=== PATIENT | male | born 1955 | race Caucasian/White ===

== ENCOUNTER 2016-10-02 06:44 | Emergency (ER) | payer MEDICARE, OTHER ==
[2016-10-02] MEDS ORDERED: Sodium Chloride 0.9% 1,000 ML IV ONE (06:58)
[2016-10-02] MEDS ORDERED: HYDROmorphone 2 MG/ML SDV IVPUSH ONE (06:59)
[2016-10-02] MEDS ORDERED: Ondansetron 4 MG/2 ML SDV IVPUSH ONE (07:00)
[2016-10-02] MEDS ORDERED: diphenhydrAMINE 50 MG Cap PO ONE (07:03)
[2016-10-02] MEDS ORDERED: Iopamidol 755 Mg/ML 100 ML Bottle IV ONE (07:41)
[2016-10-02] MEDS ORDERED: Sodium Chloride 0.9% 1,000 ML IV SCH (08:45)
[2016-10-02 11:31] VITALS: BP 145/89
[2016-10-02] MEDS: Pantoprazole 40 MG Vial IVPUSH ONE ×3 (14:08→14:38)
--- NOTE | 2016-10-04 14:04 | ER ---
DATE SEEN: 10/02/2016 The patient was seen at 0645 hours. CHIEF COMPLAINT: Abdominal pain. HISTORY OF PRESENT ILLNESS: This is a 60-year-old gentleman who has had problems with left rotator cuff surgery, August 04, 2016, after prolonged use of narcotics for the shoulder discomfort, presents now with onset of severe abdominal pain. He has not had oral narcotics for a month and a half. No unusual food eaten. No diarrhea, no vomiting, with severe onset of abdominal cramping this morning. No blood in his stool, black or tarry stools, diarrhea, or GERD. His weight has steadily increased, currently 90.7 kg. The patient denies fever, backache, and previous renal stones. SOCIAL HISTORY: He is a smoker. PAST SURGICAL HISTORY: Cholecystectomy, laparoscopic Alecia surgery fundoplication, hiatus hernia repair. A previous documented MRI right posteromedial tear of meniscus, right knee, some flattening and sclerosis of the meniscus. CURRENT MEDICATIONS: 1. Zolmitriptan for migraines. 2. Omeprazole for GERD. 3. Flomax. ALLERGIES: Flexeril, ketoprofen, and tramadol. REVIEW OF SYSTEMS: Negative except for as noted above. The patient denies shortness of breath, chest pain, irregular heartbeat, back pain, arm pain, jaw pain, neck pain. Denies flank pain. Denies difficulty passing urine, frequency, urgency, or dysuria. On occasions, he has slow flow. For that reason, he is taking Flomax (prostatism). PHYSICAL EXAMINATION: VITAL SIGNS: Blood pressure 161/112, heart rate 49, respirations 20, oxygen saturation 98%, temperature is 36.6 degrees centigrade. GENERAL: Alert man whose pain is out of proportion on exam. Markedly overweight. Increased abdominal girth. HEENT: TMs negative. Pharynx without abnormality. LUNGS: Clear to auscultation without rales or rhonchi. HEART: S1, S2. No murmur. No irregular rate and rhythm. ABDOMEN: Soft, but marked increased abdominal girth without tympany. Mild guarding. No rebound. No CVA percussion tenderness. GENITALIA: Negative. No inguinal hernia. No hernia demonstrated on palpation with examination. A while after I had left the room, he was found rolling on the floor because he had so much pain (quite an exaggerated pain response). His stated he has high pain threshold (I think this is not the case). EMERGENCY ROOM COURSE: The patient was given a flush of IV fluid, 2 mg Dilaudid IV and 4 mg Zofran IV. His pain relented quickly. He had oral and IV contrast. CAT scan performed which was read as normal. Appendix is normal. Colonic diverticulosis is noted. Small size hiatus hernia noted. Surgical clips of diaphragmatic hiatus. No free air. No lymphadenopathy. Mild aorto-iliac atherosclerosis. No aneurysm. Lower chest subsegmental atelectasis, both lung bases. CT ASSESSMENT: No acute findings in the abdomen or pelvis. LABORATORY FINDINGS: White count 13,500, mild elevation. Differential normal, 71 PMNs, 20 lymphs, 9 monos, platelets 221,000, elevated hemoglobin of 16.3. Complete metabolic panel: Lactic acid normal at 1.9. Sodium 137, potassium 3.7, chloride 99, bicarb 26, BUN 21, creatinine 0.9. BUN and creatinine ratio 23.3, suggesting dehydration. Urinalysis was normal, rare bacteria. Specific gravity 1.015. ASSESSMENT: 1. Abdominal pain. The patient's etiology is undetermined, possibly related to spasm and/or previous hiatus hernia Alecia repair. He did not have any vomiting, nor did he have diarrhea or fever to suggest an inflammatory infectious process. He has mild leukocytosis without neutrophilia. 2. Mild dehydration. The patient was flushed with 1500 mL normal saline. His pain had relented to a 1/10 to 2/10 in intensity, improved. PLAN: Gradually progressive increase in his diet. He will start with liquids and broth today and solids tomorrow. He is advised he still might have recurrence of abdominal pain. Etiology of pain is indeterminate at this point. Does not appear to be an infectious process, obstructive process, volvulus, intussusception, appendicitis, or diverticulitis. Follow up with his doctor in the next 5 to 7 days. He has Tylenol 1000 mg and 600 mg ibuprofen q.6 hours, take together for breakthrough pain. He has hydrocodone one 4 to 6 hours p.r.n. pain, 16 tablets. /[id number] /ARTEMIOL
== END 2016-10-02 11:55 | disposition home or self-care (01) ==
LOC: FB.ED 06:44
DX: E86.0 Dehydration (principal); R10.9 Unspecified abdominal pain; Z90.49 Acquired absence of other specified parts of digestive tract; Z98.890 Other specified postprocedural states; Z88.1 Allergy status to other antibiotic agents; Z88.5 Allergy status to narcotic agent
CPT/HCPCS: 36415; 74177; 80053; 81001; 83605; 84484; 85025; 86140; 93005; 96361; 96374; 96375; 99284; A9270; J1170; J2405; J7040; Q9967

== ENCOUNTER 2017-04-14 14:54 | Emergency (ER) | payer MEDICARE, OTHER ==
--- NOTE | 2017-04-14 15:03 | EDM.PDOC ---
ED HPI GENERAL MEDICAL PROBLEM - General Chief Complaint: Cardiovascular Problem Stated Complaint: CHEST PAIN Time Seen by Provider: 04/14/17 14:55 Source of Information: Reports: Patient, EMS, Old Records History Limitations: Reports: No Limitations - History of Present Illness INITIAL COMMENTS - FREE TEXT/NARRATIVE: 61 yo male developed R sided chest pain like a pressure after eating a chili dog in [place] today. He drove himself back to [place] and presented to the clinic where upon they sent him to the ER via EMS. He had a normal EKG en route to the ER. A first NTG reduced his pain, a 2nd did nothing, nor did an additional 50 mcg of Fentanyl. He also got ASA 324 mg po. He has a remote hx of tobacco use. He has had his gallbladder out. No personal hx of CAD. EMS says he has acted lethargic since they first arrived. Onset: Today Onset Date: 04/14/17 Onset Time: 13:05 Duration: Minutes: Location: Reports: Chest (R side) Quality: Reports: Pressure Severity: Moderate (Was severe earlier) Improves with: Reports: None (NTG reduced pain after first dose only. ) Worsens with: Reports: Other (unknown) Context: Reports: Other (unknown, began after eating lunch. ) Associated Symptoms: Reports: Chest Pain. 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, Other Medication(s) (NTG x 2 SL, Fentanyl 50 mcg IV) - Related Data Allergies Allergy/AdvReac Type Severity Reaction Status Date / Time cyclobenzaprine HCl Allergy Mild Other Verified 10/02/16 14:24 [From Flexeril] ketoprofen Allergy Mild Other Verified 10/02/16 14:24 tramadol AdvReac Nausea and Verified 10/02/16 14:24 Vomiting Home Meds: Home Meds Tamsulosin [Flomax] 0.4 mg PO DAILY 04/11/14 [History] Omeprazole 20 mg PO BIDAC 09/04/14 [History] Ondansetron [Zofran ODT] 4 mg PO Q6H PRN #10 tab.dis 10/30/14 [Rx] Hydrocodone/Acetaminophen [Lorcet 5-325 mg Tablet] 1 each PO Q4HR PRN #10 tablet 10/02/16 [Rx] ZOLMitriptan [Zolmitriptan] 2.5 mg PO DAILY 10/02/16 [History] hydrOXYzine Pamoate [Hydroxyzine Pamoate] 25 mg PO DAILY PRN 10/02/16 [History] Past Medical History Gastrointestinal History: Reports: Diverticulosis, GERD Genitourinary History: Reports: Prostate Disorder Musculoskeletal History: Reports: Back Pain, Chronic, Neck Pain, Chronic, Other (See Below) Other Musculoskeletal History: shoulder pain Neurological History: Reports: Headaches, Chronic - Past Surgical History GI Surgical History: Reports: Alecia Fundoplication Social & Family History - Tobacco Use Smoking Status *Q: Never Smoker Years of Tobacco use: 15 Packs/Tins Daily: 0.5 Used Tobacco, but Quit: Yes Month Tobacco Last Used: Aug 2014 Second Hand Smoke Exposure: No - Caffeine Use Caffeine Use: Reports: Coffee - Alcohol Use Days Per Week of Alcohol Use: 0 - Recreational Drug Use Recreational Drug Use: No Drug Use in Last 12 Months: No ED ROS GENERAL - Review of Systems Review Of Systems: See Below Constitutional: Reports: Fatigue HEENT: Reports: No Symptoms Respiratory: Reports: No Symptoms Cardiovascular: Reports: Chest Pain (R sided.). Denies: Dyspnea on Exertion, Edema, Lightheadedness, Palpitations, Syncope Endocrine: Reports: No Symptoms GI/Abdominal: Reports: No Symptoms : Reports: No Symptoms Musculoskeletal: Reports: No Symptoms Skin: Reports: No Symptoms Neurological: Reports: No Symptoms Psychiatric: Reports: Other (lethargy currently) ED EXAM, GENERAL - Physical Exam Exam: See Below Exam Limited By: No Limitations General Appearance: Alert, WD/WN, Lethargic, Mild Distress Eye Exam: Bilateral Eye: EOMI, Normal Inspection, PERRL Ears: Normal External Exam, Normal Canal, Hearing Grossly Normal Ear Exam: Bilateral Ear: Auricle Normal, Canal Normal Nose: Normal Inspection, Normal Mucosa, No Blood Throat/Mouth: Normal Inspection, Normal Lips, Normal Teeth, Normal Oropharynx, Normal Voice, No Airway Compromise Head: Atraumatic, Normocephalic Neck: Normal Inspection, Supple, Non-Tender Respiratory/Chest: No Respiratory Distress, Lungs Clear, Normal Breath Sounds Cardiovascular: Regular Rate, Rhythm, No Edema GI/Abdominal: Normal Bowel Sounds, Soft, Non-Tender, No Distention Back Exam: Normal Inspection. No: CVA Tenderness (R), CVA Tenderness (L) Extremities: Normal Inspection, Normal Range of Motion, Non-Tender, No Pedal Edema Neurological: Alert, Oriented, CN II-XII Intact, Normal Cognition, No Motor/ Sensory Deficits Psychiatric: Normal Affect, Normal Mood Skin Exam: Warm, Dry, Intact, Normal Color, No Rash Lymphatic: No Adenopathy EKG INTERPRETATION EKG Date: 04/14/17 Time: 14:55 Rhythm: NSR Rate (Beats/Min): 72 [place]: Normal P-Wave: Present QRS: Normal ST-T: Normal QT: Normal Comparison: No Change Course - Vital Signs Last Recorded V/S: Last Vital Signs Temp 36.6 C 04/14/17 15:00 Pulse 71 04/14/17 15:00 Resp 17 04/14/17 15:00 BP 110/78 04/14/17 15:00 Pulse Ox 93 L 04/14/17 15:00 - Orders/Labs/Meds Orders: Active Orders 24 hr Category Date Time Status Cardiac Monitoring [RC] .As Directed Care 04/14/17 14:57 Active Chest 1V Frontal [CR] Stat Exams 04/14/17 14:58 Taken UA W/MICROSCOPIC [URIN] Stat Lab 04/14/17 14:57 Uncollected EKG 12 Lead [EK] Routine Ther 04/14/17 14:57 Ordered Labs: Laboratory Tests 04/14/17 04/14/17 04/14/17 Range/Units 15:20 15:20 15:20 WBC 6.0 (4.5-12.0) X10-3/uL RBC 4.94 (4.30-5.75) x10(6)uL Hgb 15.6 H (11.5-15.5) g/dL Hct 46.2 (30.0-51.3) % MCV 93.6 (80-96) fL MCH 31.7 (27.7-33.6) pg MCHC 33.8 (32.2-35.4) g/dL RDW 13.6 (11.5-15.5) % Plt Count 198 (125-369) X10(3)uL D-Dimer, Quantitative 201 (100-400) ng/mL Sodium 136 (135-145) mmol/L Potassium 4.0 (3.5-5.3) mmol/L Chloride 104 D (100-110) mmol/L Carbon Dioxide 24 (23-29) mmol/L BUN 14 (5-20) mg/dL Creatinine 0.9 (0.6-1.3) mg/dL Est Cr Clr Drug Dosing TNP Estimated GFR (MDRD) > 60 (>60) BUN/Creatinine Ratio 15.6 (9-20) Glucose 162 H (80-116) mg/dL Calcium 8.8 (8.6-10.2) mg/dL Alkaline Phosphatase (56-112) IU/L Troponin I (0.02-0.06) NG/ML Amylase (28-100) U/L 04/14/17 04/14/17 Range/Units 15:20 15:20 WBC (4.5-12.0) X10-3/uL RBC (4.30-5.75) x10(6)uL Hgb (11.5-15.5) g/dL Hct (30.0-51.3) % MCV (80-96) fL MCH (27.7-33.6) pg MCHC (32.2-35.4) g/dL RDW (11.5-15.5) % Plt Count (125-369) X10(3)uL D-Dimer, Quantitative (100-400) ng/mL Sodium (135-145) mmol/L Potassium (3.5-5.3) mmol/L Chloride (100-110) mmol/L Carbon Dioxide (23-29) mmol/L BUN (5-20) mg/dL Creatinine (0.6-1.3) mg/dL Est Cr Clr Drug Dosing Estimated GFR (MDRD) (>60) BUN/Creatinine Ratio (9-20) Glucose (80-116) mg/dL Calcium (8.6-10.2) mg/dL Alkaline Phosphatase 64 (56-112) IU/L Troponin I < 0.01 L (0.02-0.06) NG/ML Amylase 46 (28-100) U/L Meds: Medications Discontinued Medications Generic Name Dose Route Start Last Admin Trade Name Freq PRN Reason Stop Dose Admin Al Hydroxide/Mg Hydroxide 15 0 ml 04/14/17 16:03 ml/ Lidocaine HCl 15 ml PO 04/14/17 16:04 ONETIME ONE - Radiology Interpretation Free Text/Narrative:: CXR-negative Departure - Departure Time of Disposition: 16:15 Disposition: DC/Tfer to Acute Hospital 02 Reason for Transfer *Q: Other Condition: Fair Clinical Impression: Chest pain Qualifiers: Chest pain type: unspecified Qualified Code(s): R07.9 - Chest pain, unspecified Referrals: Aguila Rush MD [Primary Care Provider] - Forms: ED Department Discharge - My Orders Last 24 Hours: My Active Orders 04/14/17 14:57 Cardiac Monitoring [RC] .As Directed UA W/MICROSCOPIC [URIN] Stat EKG 12 Lead [EK] Routine 04/14/17 14:58 Chest 1V Frontal [CR] Stat - Assessment/Plan Last 24 Hours: My Active Orders 04/14/17 14:57 Cardiac Monitoring [RC] .As Directed UA W/MICROSCOPIC [URIN] Stat EKG 12 Lead [EK] Routine 04/14/17 14:58 Chest 1V Frontal [CR] Stat
[2017-04-14 15:32] VITALS: BP 110/78
[2017-04-14] MEDS ORDERED: Alum Hydroxide/Mag Hydroxide 15 ML, Lidocaine 2% 15 ML PO ONE ×2 (16:03)
--- NOTE | 2017-04-15 08:42 | CR ---
INDICATION: Chest pain. CHEST: A single portable AP upright view of the chest 12/12/2016 was compared with 11/09/2015 and revealed the heart to be enlarged, the aorta tortuous, with suggestion of some minimal calcification in the arch. Very poor inspiration emphasizes markings, making it difficult to entirely exclude a minimal or early CHF. Full inspiration PA and lateral views of the chest, when clinically possible, should be helpful in that regard. A definite active infiltrate or effusion was not identified. IMPRESSION: 1. No definite acute process, but difficult to entirely exclude minimal or early CHF due to poor inspiration. 2. ASHD with cardiomegaly. MTDD
== END 2017-04-14 16:45 ==
LOC: FB.ED 14:54
DX: R07.9 Chest pain, unspecified (principal); K21.9 Gastro-esophageal reflux disease without esophagitis; Z88.5 Allergy status to narcotic agent; Z88.8 Allergy status to other drugs, medicaments and biological substances; Z79.899 Other long term (current) drug therapy
CPT/HCPCS: 36415; 71010; 80048; 82150; 84075; 84484; 85027; 85379; 93005; 99285; A9270